=== PATIENT | female | born 1945 | race Caucasian/White ===

== ENCOUNTER 2024-01-03 12:20 | Emergency (ER) | payer MEDICARE, OTHER ==
[~2024-01-03] VITALS: Ht 152.4 cm; Wt 65.8 kg
[2024-01-03 13:01] LABS: BASOPHILS # (AUTO) 0.1 K/UL (0.0-0.2); BASOPHILS % (AUTO) 1.2 % (0.0-2.0); EOSINOPHILS # (AUTO) 0.1 K/uL (0.0-0.7); HEMATOCRIT 34.8 % (31.2-41.9); HEMOGLOBIN 11.1 g/dL (10.9-14.3); LYMPHOCYTES # (AUTO) 2.9 K/uL (0.8-4.8); LYMPHOCYTES % (AUTO) 34.7 % (20.5-51.5); MEAN CORPUSCULAR HEMOGLOBIN 25.9 uug (24.7-32.8); MEAN CORPUSCULAR HGB CONC 32 g/dL (32.3-35.6); MEAN CORPUSCULAR VOLUME 80.9 fL (75.5-95.3); MONOCYTES # (AUTO) 0.8 K/uL (0.1-1.30); MONOCYTES % (AUTO) 9.3 % (0.0-11.0); NEUTROPHILS # (AUTO) 4.5 K/uL (1.8-8.9); NEUTROPHILS % (AUTO) 53.8 % (38.5-71.5); PLATELET COUNT (AUTO) 393 K/uL (179-408); RED BLOOD CELL COUNT(AUTO) 4.31 MIL/uL (3.63-4.92); RED CELL DISTRIBUTION WIDTH 20.4 % (12.3-17.7); WHITE BLOOD COUNT (AUTO) 8.3 K/uL (3.8-11.8)
[2024-01-03 13:03] LABS: CALCIUM 8.9 mg/dL (8.5-10.1); CARBON DIOXIDE 29 mmol/L (21-32); CHLORIDE 102 mmol/L (98-107); CREATININE 0.5 mg/dL (0.6-1.3); GLUCOSE 96 mg/dL (74-106); POTASSIUM 3.4 mmol/L (3.5-5.1); SODIUM SERUM 142 mmol/L (136-145); UREA NITROGEN, BLOOD 13 mg/dL (7-18)
[2024-01-03 13:05] LABS: AMMONIA 18 umol/L (11-32)
[2024-01-03 13:08] LABS: ALANINE AMINOTRANSFERASE 19 U/L (14-59); ALBUMIN 2.8 g/dL (3.4-5.0); ALKALINE PHOSPHATASE 102 U/L (50-136); ASPARTATE AMINOTRANSFERASE 15 U/L (15-37); BILIRUBIN,DIRECT 0.2 mg/dL (0.0-0.2); BILIRUBIN,TOTAL 0.8 mg/dL (0.2-1.0); DIFFERENTIAL COMMENT 1; TOTAL PROTEIN, SERUM 7.8 g/dL (6.4-8.2)
[2024-01-03] MEDS ORDERED: PEG15DRO5 OP (13:17)
[2024-01-03] MEDS ORDERED: AMLO10TA59 PO (13:17)
[2024-01-03] MEDS ORDERED: CHOL500062 PO (13:17)
[2024-01-03] MEDS ORDERED: ACET-2154 PO (13:17)
[2024-01-03] MEDS ORDERED: ALBU2.5V38 IH (13:17)
[2024-01-03] MEDS ORDERED: CYCL5TAB PO (13:17)
[2024-01-03] MEDS ORDERED: NORT25CA5 PO (13:17)
[2024-01-03] MEDS ORDERED: PILO15DR36 OP (13:17)
[2024-01-03] MEDS ORDERED: MAGN400O6 PO (13:17)
[2024-01-03] MEDS ORDERED: NETA2.5D OP (13:17)
[2024-01-03] MEDS ORDERED: LEVE100S PO (13:17)
[2024-01-03] MEDS ORDERED: METO50TA16 PO (13:17)
[2024-01-03] MEDS ORDERED: LEVE750T4 PO (13:17)
[2024-01-03] MEDS ORDERED: FOLI0.4T6 PO (13:17)
[2024-01-03] MEDS ORDERED: BISA10SU12 RC (13:17)
[2024-01-03] MEDS ORDERED: ATOR40TA PO (13:17)
[2024-01-03] MEDS ORDERED: LATA7.5D OP (13:17)
[2024-01-03] MEDS ORDERED: MULT-213 PO (13:17)
[2024-01-03] MEDS ORDERED: APIX5TAB PO (13:17)
[2024-01-03] MEDS ORDERED: FURO20TA4 PO (13:17)
[2024-01-03] MEDS ORDERED: CLOT15CR5 TP (13:17)
[2024-01-03] MEDS ORDERED: DOCU100T2 PO (13:17)
[2024-01-03] MEDS ORDERED: MINE133E RC (13:17)
[2024-01-03 13:27] LABS: THYROID STIMULATING HORMONE 1.529 mIU/mL (0.358-3.740)
[2024-01-03] MEDS: IV SODIUM CHLORIDE 3% 500 ML IV ONE (15:08)
[2024-01-03] MEDS ORDERED: TRANEXAMIC ACID 1,000 MG/10 ML VIAL ONE (15:17)
[2024-01-03] MEDS: TRANEXAMIC ACID 1,000 MG/10 ML VIAL IV ONE (15:24)
[2024-01-03 18:20] VITALS: O2SAT 99
== END 2024-01-03 18:54 | disposition short-term general hospital (02) ==
LOC: ER 12:20
DX: G81.94 Hemiplegia, unspecified affecting left nondominant side (principal); I62.9 Nontraumatic intracranial hemorrhage, unspecified; I50.9 Heart failure, unspecified; J44.9 Chronic obstructive pulmonary disease, unspecified; K21.9 Gastro-esophageal reflux disease without esophagitis; F32.A Depression, unspecified; Z79.1 Long term (current) use of non-steroidal anti-inflammatories (NSAID); Z79.52 Long term (current) use of systemic steroids; Z79.899 Other long term (current) drug therapy
CPT/HCPCS: 36415; 70450; 71045; 84443; 85025; 85730; 93005; A4606; A4663